=== PATIENT | female | born 1995 | race Caucasian/White ===

== ENCOUNTER 2017-04-21 09:30 | Outpatient (RCR) | payer OTHER, SELFPAY ==
--- NOTE | 2017-03-24 14:23 | HP.OTEVAL ---
Patient's Visit Information MARTY ARANDA is a 22 year old F, referred to Occupational Therapy by JOSEPH Grider,PA.MARIANO, with a diagnosis of left IF/MF laceration. Date of Evaluation: 03/24/17 Occupational Therapist: Cherrie Mckeon, RAMINR/Barbie, CHT - Subjective Subjective: pt states she was injured at work on Jan 04, 2017. she was reaching in to get a part out of her machine and her left hand was pinned-she suffered lacerations on left IF and MF- pt states her hand currently limits her ability to perform task that required two handed task- grasp and pinch. - Pain left hand 4 Pain Intensity Range: 0, 6 - Objective Objective/Observation: pt reports she is ind. 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 with work tasks by D/C. pt will demo a increase in left lateral and tripod pinch strength by 2# to increase ind. with work tasks. 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 with daily tasks at work. Rehabilitation Potential: Excellent - Anticipated Interventions Anticipated Interventions: A/AAROM/PROM, Strengthening, Scar Care, Desensitization, Modalities - Visit Plan Frequency: 3x /Week Duration: 4 Weeks General Plan: pt was ed. 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 For Medicare and Medicare HMO plans, please review the plan of care and approve it. It will need to be FAXED BACK to us at [phone] for Medicare purposes. Please let me know if there are questions or concerns regarding this plan of care. Physician Signature: Date:
--- NOTE | 2017-04-21 09:50 | HP.OTDCSUM ---
HP - OT D/C Summary It has been my pleasure to treat MARTY ARANDA under orders from JOSEPH Grider, PAMAYA for the diagnosis of left IF/MF laceration for a total of 12 visit(s). Please see the following information for a summary of their discharge status. 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 left lat pinch 10# left tripod pinch 6#. IF MCP 70. MF MCP 75. RF MCP 78. LF MCP 85. Left IF PIP 96. left MF PIP 102. left RF PIP 96. left LF PIP 87. left IF DIP 50. left MF DIP 55. left RF DIP 52. left LF DIP 50 - Goals Patient Goals: Regain Mobility, Regain Strength, Decrease Pain, Improve Fine Motor Skills, Use Hand/Wrist/Arm Normally Again, Be More Independent in ADLS Goal:: pt will demo a increase in left girp strength to 60# to increase ind. with work tasks by D/C. pt will demo a increase in left lateral and tripod pinch strength by 2# to increase ind. with work tasks. Goal:: pt will report pain no greater than 1/10 following work tasks by/d/c Goal:: pt will demo a decrease in scar sensitivity to claudette left MF rubbing on left IF by d/c - Plan Plan: D/C - D/C Information Discharge Comments: pt has met goals in OT and reports ind. with BADLS and IADLs. pt contines to have min. scar sensitivity but has been advised to cont with scar desensitization with a HEP- pt demo. understading and agrees to D/C plan If there are questions or concerns regarding this patient's occupational therapy, please fell free to call me at [phone]. Thank you for the referral of this patient. Sincerely, Cherrie Mckeon, OTR/L, CHT
== END 2017-04-21 15:01 | disposition home or self-care (01) ==
LOC: OT 09:30
PROVIDERS: Visit Provider Physician Assistant
DX: S61.215D Laceration without foreign body of left ring finger without damage to nail, subsequent encounter (principal); S61.213D Laceration without foreign body of left middle finger without damage to nail, subsequent encounter
CPT/HCPCS: 97035; 97110; 97140; 97166; 97530